=== PATIENT | female | born 2000 ===

== ENCOUNTER → 2022-11-27 14:37 | Outpatient (CLI) | payer OTHER, SELFPAY ==
--- NOTE | ~2022-11-27 | XR_ITS ---
EXAM: XR ankle LT min 3V, XR foot LT min 3V DATE: 11/27/2022 15:19 (accession [id number]), 11/27/2022 15:18 (accession [id number]) HISTORY: Acute left ankle pain . COMPARISON: None available. FINDINGS: Normal mineralization. No fracture or dislocation. No lytic or blastic lesion. Tibiotalar osteophytosis. Achilles enthesopathy. Mild hallux valgus and degenerative change at the first MTP brielle nt No erosion or periosteal change. Soft tissues within normal limits. IMPRESSION: No acute osseous finding in the left ankle or foot. Mild ankle and first MTP osteoarthrit is. Mild hallux valgus. Achilles enthesopathy. Reviewed, dictated and finalized at location K. IMPRESSION: No acute osseous finding in the left ankle or foot. Mild ankle and first MTP osteoarthritis. Mild hallux valgus. Achilles enthesopathy.
--- NOTE | ~2022-11-27 | XR_ITS ---
EXAM: XR knee RT 3V DATE: 11/27/2022 15:19 HISTORY: Acute pain of right knee . COMPARISON: None available. FINDINGS: Normal mineralization. No fracture or dislocation. No lytic or blastic lesion. Mild medial joint space narrowing. Quadriceps enthesopathy. No erosion or periosteal change. Soft tissues within normal limits. IMPRESSION: No acute osseous finding in the right knee. Mild medial compartment osteoarthritis. Quadr iceps enthesopathy. Reviewed, dictated and finalized at location K. IMPRESSION: No acute osseous finding in the right knee. Mild medial compartment osteoarthritis. Quadriceps enthesopathy.
== END ==
PROVIDERS: PCP Nurse Practitioner Family; Visit Provider Nurse Practitioner Family
DX: M19.072 Primary osteoarthritis, left ankle and foot (principal); M20.12 Hallux valgus (acquired), left foot; M77.32 Calcaneal spur, left foot; M17.11 Unilateral primary osteoarthritis, right knee
CPT/HCPCS: 73562; 73610; 73630

== ENCOUNTER → 2022-12-04 13:32 | Outpatient (CLI) | payer OTHER, SELFPAY | PROVIDERS: PCP Nurse Practitioner Family; Visit Provider Nurse Practitioner Family | DX: M25.562 Pain in left knee (principal); G89.29 Other chronic pain | CPT/HCPCS: 73564 ==